=== PATIENT | female | born 1975 | race Two or more races ===

== ENCOUNTER 2019-01-05 08:55 | Outpatient (CLI) | payer OTHER | END 2019-01-05 09:01 | disposition home or self-care (01) | LOC: SONOGRAMA 08:55 | DX: N60.19 Diffuse cystic mastopathy of unspecified breast (principal); N63.10 Unspecified lump in the right breast, unspecified quadrant; N63.20 Unspecified lump in the left breast, unspecified quadrant ==

== ENCOUNTER 2020-12-24 08:30 | Outpatient (CLI) | payer OTHER | END 2020-12-24 08:48 | disposition home or self-care (01) | LOC: MAMO-SONO 08:30 | DX: E04.8 Other specified nontoxic goiter (principal); N64.4 Mastodynia; N64.89 Other specified disorders of breast; E03.8 Other specified hypothyroidism; N63.0 Unspecified lump in unspecified breast ==

== ENCOUNTER 2021-02-05 08:00 | Outpatient (CLI) | payer OTHER | END 2021-02-05 08:30 | disposition home or self-care (01) | LOC: PPH VACUNA 08:00 | PROVIDERS: ATTEND Emergency Medicine Pediatric Emergency Medicine | DX: Z23 Encounter for immunization (principal) ==